=== PATIENT | female | born 1985 | race Caucasian/White ===

== ENCOUNTER 2017-05-03 13:55 | Emergency (ER) | payer MEDICAID ==
[~2017-05-03] VITALS: Ht 149.9 cm; Wt 59.9 kg
[2017-05-03 14:02] VITALS: BP 138/86
[2017-05-03] MEDS ORDERED: [UNRECOGNIZED DRUG - OTHER] (14:08)
--- NOTE | 2017-05-03 14:30 | NUR ---
PT AMBULATED TO BED 6.
--- NOTE | 2017-05-03 14:32 | NUR ---
31F BIB FAMILY C/O SORE THROAT WITH CONGESTION AND COUGH X 2 WEEKS; PT STATES HAS GREEN PHLEGM WITH COUGH; PT C/O "SCRATCHING" PAIN TO THROAT, NON-RADIATING, 8/10 AT THIS TIME; BL LUNG SOUNDS CLEAR, RR EVEN/UNLABORED, EQUAL RISE/FALL OF CHEST NOTED AT THIS TIME; PT C/O 1 EPISODE OF DIARRHEA X TODAY, BUT STATES NO NAUSEA OR VOMITING AT THIS TIME; ABDOMEN SOFT, NON-TENDER, ACTIVE BOWEL SOUNDS X 4 QUADRANTS; PT AA&OX4, PERRLA, SKIN IS WARM/DRY/INTACT AT THIS TIME; STEADY GAIT; PT RESTING IN BED WITH HOB ELEVATED AND IN LOWEST POSITION; POSITIONED FOR COMFORT; ER MD MADE AWARE OF STATUS. WILL CONTINUE TO MONITOR.
--- NOTE | 2017-05-03 14:40 | NUR ---
ER MD DR. KNIGHT EVALUATING PT AT BEDSIDE.
[2017-05-03] MEDS ORDERED: KETOROLAC 60 MG/2 ML VIAL IM ONE (14:45)
[2017-05-03 15:36] VITALS: BP 131/87
--- NOTE | 2017-05-03 15:36 | NUR ---
Patient discharged with v/s stable. Written and verbal after care instructions given and explained. Patient alert, oriented and verbalized understanding of instructions. Ambulatory with steady gait. All questions addressed prior to discharge. ID band removed. Patient advised to follow up with PMD. Rx of MOTRIN 600MG TAB & PREDNISONE 20MG TAB given. Patient educated on indication of medication including possible reaction and side effects. Opportunity to ask questions provided and answered.
== END 2017-05-03 15:36 | disposition home or self-care (01) ==
LOC: MED 13:55
DX: J02.9 Acute pharyngitis, unspecified (principal)
CPT/HCPCS: 96372; 99283; J1885